=== PATIENT | male | born 1995 | race Caucasian/White ===

== ENCOUNTER 2017-08-24 19:01 | Emergency (ER) | payer BC, OTHER ==
[2017-08-24 19:09] VITALS: RESP 16; O2SAT 96
--- NOTE | 2017-08-24 19:33 | EDPHY ---
H & P Stated Complaint: skateboard inj hit face/chin/head no helmet/+ loc seems slow but oriented Time Seen by Provider: 08/24/17 19:23 HPI/ROS: CHIEF COMPLAINT: Head injury, facial, mandible injury, left hip injury HISTORY OF PRESENT ILLNESS: 21-year-old male , otherwise healthy no anticoagulant use, arrives via private vehicle complaining of head injury, mandible injury, left hip injury when he was skateboarding, unhelmeted shortly prior to arrival, hit a bump and fell. Stated chin laceration. Complaining of pain to his mandible and TMJ, complaining of pain to his left iliac crest, complaining of nausea, vomiting, headache. PRIMARY CARE PROVIDER: REVIEW OF SYSTEMS: A ten point review of systems was performed and is negative with the exception of the items mentioned in the HPI PAST MEDICAL/SURGICAL HISTORY: no anticoagulant use, no relevant medical/ surgical history SOCIAL HISTORY: denies alcohol use at time of incident PHYSICAL EXAM 1) GENERAL: Well-developed, well-nourished, alert and oriented. Appears to be in no acute distress. Answering questions appropriately. 2) HEAD: Normocephalic, atraumatic 3) HEENT: Pupils equal, round, reactive to light bilaterally. Negative Horners. Nasopharynx, oropharynx, clear. No deformity or angulation of nose. No septal hematoma. No rhinorrhea. No oral trauma. Ears bilaterally with normal tympanic membranes. No hemotympanum. No fluid or blood in the external auditory canal. No raccoon eyes. No Lang sign. Teeth are normally aligned with no gross malocclusion, tender to palpation left TMJ. Tender to palpation left angle of mandible. Tender to palpation midline mandible. He has a 1.5 cm laceration midline chin. He has a left zygomatic arch abrasion. 4) NECK: No cervical collar is on. Posterior cervical spine is nontender, no stepoff, no effusion. Full range of motion which does not elicit any midline cervical spine pain, no posterior midline tenderness, no step-off. 5) LUNGS: Clear to auscultation bilaterally, no wheezes, no rhonchi, no retractions. No obvious signs of trauma. No chest wall pain. No flaring, no grunting. Moving symmetrically. No crepitus. 6) HEART: [Regular rate and rhythm, 7) ABDOMEN: No guarding, no rebound, no focal tenderness, no peritoneal signs, no signs of trauma, no ecchymosis 8) MUSCULOSKELETAL: Left iliac crest abrasion, pain to the left hip and pelvis. No shortening no malrotation. Otherwise, Moving all extremities, no focal areas of tenderness, no obvious trauma. 9) BACK: No midline vertebral tenderness, no fluctuance, no step-off, no obvious trauma, no visual or palpable abnormality. 10) SKIN: chin laceration. Left cheek abrasion DIFFERENTIAL DIAGNOSIS: Not necessarily in any particular order, my differential diagnosis includes, but is not limited to, concussion, skull fracture, intraparenchymal contusion, subarachnoid, subdural and epidural hematoma. The patient understands that this diagnosis is provisional and can never be 100% accurate. - Personal History Current Tetanus/Diphtheria Vaccine: Unsure - Medical/Surgical History Hx Asthma: No Hx Chronic Respiratory Disease: No Hx Diabetes: No Hx Cardiac Disease: No Hx Renal Disease: No Hx Cirrhosis: No Hx Alcoholism: No Hx HIV/AIDS: No Hx Splenectomy or Spleen Trauma: No Other PMH: 6denies - Social History Smoking Status: Never smoked Constitutional: Initial Vital Signs Temperature (C) 36.4 C 08/24/17 19:06 Heart Rate 62 08/24/17 19:06 Respiratory Rate 16 18 19:06 Blood Pressure 124/83 H 18 19:06 O2 Sat (%) 96 08/24/17 19:06 O2 Delivery Mode Room Air Allergies/Adverse Reactions: ibuprofen Allergy (Verified 08/24/17 19:06) Home Medications: Medication Instructions Recorded NO HOME MEDS 04/25/13 Medical Decision Making - Diagnostics Imaging Results: Imaging Impressions Face CT 08/24/17 19:29 Impression: 1. Negative noncontrast CT examination of the facial bones. Results called to Michael Banks PA-C, at 8:[address] 08/24/17 19:29 Impression: Normal noncontrast CT of the brain. Results called to Dr. Michael Banks PA-C at 8:05 PM at the time of the interpretation. Images reviewed myself Procedures: Procedure: Laceration repair with tissue adhesive Verbal consent was obtained from the patient. The 1.5 cm laceration on the midline chin. The wound was scrubbed and explored to its base with a gloved finger. No foreign body seen, no foreign bodies palpated. There were no deep structures involved. The wound was repaired with tissue adhesive. The procedure was performed by myself. Patient has been informed that scarring will occur, although every effort has been made to minimize this. ED Course/Re-evaluation: 7:31 p.m.:Head CT ordered in this patient for trauma for the following indication: severe headache, vomiting loss of consciousness and visible head trauma. Indications risks benefits including but not limited to, radiation exposure, financial cost were discussed with patient and he consents. 8:20 p.m.: Re-evaluation discussed the negative imaging results. He is answering questions appropriately. Wound has been closed. Plan will be discharge home. Usual and customary head injury precautions and instructions provided. Care of patient under supervision of secondary supervising physician Dr Noman Diane. Departure - Departure Disposition: Home, Routine, Self-Care Clinical Impression: Injury while skateboarding Chin laceration Qualifiers: Encounter type: initial encounter Qualified Code(s): S01.81XA - Laceration without foreign body of other part of head, initial encounter Head injury due to trauma Qualifiers: Encounter type: initial encounter Qualified Code(s): S09.90XA - Unspecified injury of head, initial encounter Condition: Good Instructions: Laceration (ED) Additional Instructions: ALTHOUGH THERE IS NO EVIDENCE OF SERIOUS HEAD INJURY AT THIS TIME, DELAYED SIGNS CAN APPEAR 24 TO 48 HOURS AFTER INJURY. PLEASE RETURN TO THE EMERGENCY DEPARTMENT (ED) IMMEDIATELY IF YOU HAVE INCREASED HEADACHE, PERSISTENT HEADACHE , VOMITING, WEAKNESS, CONFUSION OR VISUAL PROBLEMS. WE RECOMMEND THAT YOU DO NOT RESUME CONTACT SPORTS OR ACTIVITIES THAT TAKE COORDINATION OR BALANCE SUCH SKIING OR RIDING A BICYCLE UNTIL CLEARED TO DO SO BY YOUR DOCTOR OR BY A NEUROLOGIST. Referrals: Nicolle Masterson MD [Medical Doctor] - 5-7 days, call for appt.
[2017-08-24 21:22] VITALS: BP 133/77; PULSE 74; TEMP 97.9
== END 2017-08-24 21:22 | disposition home or self-care (01) ==
PROC: 0HQ1XZZ Repair Face Skin, External Approach (ICD-10-PCS; principal; 2017-08-24)
DX: S01.81XA Laceration without foreign body of other part of head, initial encounter (principal); V00.131A Fall from skateboard, initial encounter; Y99.8 Other external cause status; Y93.51 Activity, roller skating (inline) and skateboarding

== ENCOUNTER 2017-08-25 02:03 | Emergency (ER) | payer OTHER ==
[2017-08-25 02:10] VITALS: RESP 16; TEMP 98.4; O2SAT 95
--- NOTE | 2017-08-25 02:37 | EDPHY ---
H & P Stated Complaint: left wrist pain Time Seen by Provider: 08/25/17 02:19 HPI/ROS: Chief Complaint: Left wrist pain HPI: 21-year-old male fell off his skateboard yesterday. He was seen here with a chin laceration and some bruising on his left hip. Those were workup were negative. Since these have been having worsening left wrist pain. It hurts to move his wrist. No prior wrist injuries. His otherwise without complaint. ROS: 10 point Review of Systems is negative except as noted in the HPI. PMH: Denies Social History: No smoking, no alcohol, no recreational drug use Family History: non-contributory Physical Exam: Gen: Awake, Alert, Airway Intact HEENT: Head: Atraumatic Eyes: PERRLA, EOMI Nose: No epistaxis Mouth: Normal dentition, Airway patent Face: Patient has lacerations on his chin which have been repaired and abrasion on his left zygoma. Neck: non-tender, no stepoff, Full ROM without pain Chest: non-tender, lungs CTA Heart: normal heart tones Abd: soft, non-tender, atraumatic Pelvis: Left hip and iliac crest tenderness to palpation Back: atraumatic, no midline tenderness Ext: He has got tenderness over the radial wrist, decreased range of motion secondary to pain. No deformity or edema noted. Skin: no rash Neuro: CN II-XII intact, Strength 5/5 in all extremities, sensation intact in all extremities - Personal History Current Tetanus/Diphtheria Vaccine: Yes Current Tetanus Diphtheria and Acellular Pertussis (TDAP): Yes - Medical/Surgical History Hx Asthma: No Hx Chronic Respiratory Disease: No Hx Diabetes: No Hx Cardiac Disease: No Hx Renal Disease: No Hx Cirrhosis: No Hx Alcoholism: No Hx HIV/AIDS: No Hx Splenectomy or Spleen Trauma: No Other PMH: denies - Social History Smoking Status: Never smoked Constitutional: Initial Vital Signs Temperature (C) 36.9 C 08/25/17 02:08 Heart Rate 62 08/25/17 02:08 Respiratory Rate 16 08/25/17 02:08 Blood Pressure 120/86 H 08/25/17 02:08 O2 Sat (%) 95 08/25/17 02:08 O2 Delivery Mode Room Air Allergies/Adverse Reactions: ibuprofen Allergy (Verified 08/25/17 02:10) Home Medications: Medication Instructions Recorded NO HOME MEDS 10/20/13 Medical Decision Making - Diagnostics Imaging Results: Left wrist x-rays negative per my interpretation. Imaging: I viewed and interpreted images myself ED Course/Re-evaluation: 21-year-old status post skateboard fall with left wrist pain. No obvious fractures per my interpretation. Patient has been placed in a Velcro wrist splint. Will discharge with follow-up with orthopedics, return for any concerns. Departure - Departure Disposition: Home, Routine, Self-Care Clinical Impression: Wrist sprain Condition: Good Instructions: Wrist Sprain (ED), R.I.C.E. Treatment (ED) Additional Instructions: Follow up with Orthopedics in 3-4 days if symptoms are not improving. Alternate acetaminophen (1000 mg) with ibuprofen (400 mg) every 4 hours as needed for pain. You may wear the Velcro wrist splint for comfort as needed. Referrals: NONE *PRIMARY CARE P,. [Primary Care Provider] - As per Instructions Clyde Perez MD [Medical Doctor] - As per Instructions
[2017-08-25] MEDS ORDERED: HYDROCOD/APAP 5/325 PREPACK#6 BTL TAKEHOME ONE (03:13)
[2017-08-25 03:20] VITALS: BP 144/85; PULSE 56
== END 2017-08-25 03:22 | disposition home or self-care (01) ==
DX: S63.502D Unspecified sprain of left wrist, subsequent encounter (principal); V00.131D Fall from skateboard, subsequent encounter
CPT/HCPCS: L3807